=== PATIENT | male | born 1975 | race Two or more races ===

== ENCOUNTER 2020-11-23 04:56 | Inpatient (IN) | payer OTHER ==
[~2020-11-23] VITALS: Ht 167.6 cm; Wt 101.2 kg
[2020-11-23] MEDS ORDERED: ONDANSETRON ODT 4 MG ONE (05:39)
[2020-11-23] MEDS ORDERED: METHOCARBAMOL 750 MG TABLET ONE (05:39)
[2020-11-23] MEDS ORDERED: HYDROcodone/APAP 5/325 TABLET ONE (05:40)
--- NOTE | 2020-11-23 05:43 | NUR ---
Pt brought in by EMS from home for acute onset lower lumbar back pain. Onset 9pm yesterday, however gradually worsening over night. Describes pain as achy, non radiating. No sig PMH other than minor L sided CVA x5 years ago. Pt denies any medications including anticoagulation. EMS gave pt 4mg Morphine and 4mg Zofran en route. Pt vitals stable en route. GCS 15, alert and oriented x4. Pt works in [employer] and states he mightve sustained an injury while working. Denies any burning difficulty urinating.
[2020-11-23] MEDS ORDERED: PLEASE ENTER ALLERGIES MC SCH (06:00)
[2020-11-23] MEDS ORDERED: HYDROcodone/APAP 5/325 TABLET PO ONE (06:00)
[2020-11-23] MEDS ORDERED: METHOCARBAMOL 750 MG TABLET PO ONE (06:00)
[2020-11-23] MEDS ORDERED: ONDANSETRON ODT 4 MG PO ONE (06:00)
[2020-11-23] MEDS ORDERED: KETOROLAC 30 MG/1 ML IVPush ONE (06:30)
[2020-11-23] MEDS ORDERED: MORPHINE SULFATE 4 MG/ML, 1ML ONE ×2 (06:33→08:00)
[2020-11-23] MEDS ORDERED: KETOROLAC 30 MG/1 ML ONE (06:33)
[2020-11-23] MEDS: MORPHINE SULFATE 4 MG/ML, 1ML IVPush PRN ×2 (06:36→08:05)
[2020-11-23] MEDS ORDERED: DIPHENHYDRAMINE 50 MG/ML, 1ML ONE (06:44)
--- NOTE | 2020-11-23 06:55 | NUR ---
Report given to HAL Bunch no further questions at this time.
[2020-11-23] MEDS ORDERED: SODIUM CHLORIDE FLUSH 10ML SYR IVF ONE (07:00)
[2020-11-23] MEDS ORDERED: SODIUM CHLORIDE 0.9% 1,000 ML IV ONE ×2 (07:00→09:30)
[2020-11-23] MEDS ORDERED: DIPHENHYDRAMINE 50 MG/ML, 1ML IVPush ONE (07:00)
[2020-11-23] MEDS ORDERED: SODIUM CHLORIDE 0.9% 1,000ML IVBOLUS ONE (07:00)
--- NOTE | 2020-11-23 07:05 | NUR ---
ASSUMING CARE OF PT. PT ASLEEP IN BED WITH EVEN AND UNLABORED RESPIRATIONS. VSS. WOO.
[2020-11-23 07:14] LABS: MICROSCOPIC INDICATED
[2020-11-23 07:18] LABS: MEAN CORPUSCULAR HEMOGLOBIN 28.9 pg (27.5-34.5); MEAN CORPUSCULAR HGB CONC 33.4 g/dL (33.2-36.2); MEAN PLATELET VOLUME 7.7 fL (7.4-10.4); PLATELET COUNT 240 x10^3/uL (130-400); RED BLOOD COUNT 5.64 x10^6/uL (4.38-5.82); RED CELL DISTRIBUTION WIDTH 14.9 % (9.4-14.8)
[2020-11-23 07:30] LABS: ALANINE AMINOTRANSFERASE 127 U/L (12-78); ALBUMIN 3.5 g/dL (3.4-5.0); ANION GAP 10 mmol/L (5-15); CALCIUM 8.7 mg/dL (8.5-10.1); CHLORIDE 106 mmol/L (98-107); CREATININE 1.64 mg/dL (0.7-1.3)
[2020-11-23 07:48] LABS: <PLATELET ESTIMATE> ADEQUATE; <PLT MORPHOLOGY> NORMAL PLT MORPH; <RBC MORPHOLOGY> NORMAL; BAND#(MANUAL) 0.43 x10^3/uL; BANDS%(MANUAL) 3 % (0-7); LYMPH#(MANUAL) 0.85 x10^3/uL (1-3.4); LYMPHS% (MANUAL) 6 % (22-44); MONOS#(MANUAL) 0.71 x10^3/uL (0.3-2.7); MONOS% (MANUAL) 5 % (2-9); SEG#(MANUAL) 12.21 x10^3/uL (1.8-6.8); SEGS% (MANUAL) 86 % (42-75)
[2020-11-23 07:55] LABS: ALKALINE PHOSPHATASE 77 U/L (45-117); BILIRUBIN,TOTAL 0.8 mg/dL (0.2-1.0); TOTAL PROTEIN 8.3 g/dL (6.4-8.2)
[2020-11-23] MEDS ORDERED: DIAZEPAM 5 MG/ML, 2ML ONE (07:59)
[2020-11-23] MEDS ORDERED: DIAZEPAM 5 MG/ML, 2ML IV ONE (08:00)
--- NOTE | 2020-11-23 08:06 | NUR ---
pt medicated per emar for pain. vss
--- NOTE | 2020-11-23 08:27 | NUR ---
PT ASLEEP WITH EVEN AND UNLABORED RESPIRATIONS. SYEDA. CHILO.
[2020-11-23 08:55] LABS: CREATINE KINASE, TOTAL 38934 U/L (39-308)
[2020-11-23] MEDS ORDERED: SODIUM CHLORIDE FLUSH 10ML SYR IVF PRN (09:30)
--- NOTE | 2020-11-23 10:11 | NUR ---
HOSPITALIST TO BEDSIDE. VSS. NADN. TO BE ADMITTED. MEDICATED PER EMAR.
[2020-11-23] MEDS ORDERED: METOCLOPRAMIDE 5 MG/ML, 2ML IVPush PRN (10:30)
[2020-11-23] MEDS ORDERED: hydrALAzine 20 MG/ML, 1ML IVPush PRN (10:30)
[2020-11-23] MEDS ORDERED: ONDANSETRON 2MG/ML, 2ML IVPush PRN (10:30)
[2020-11-23] MEDS: ENOXAPARIN 40 MG/0.4 ML SQ SCH ×2 (10:30→19:25)
[2020-11-23] MEDS ORDERED: ONDANSETRON ODT 4 MG PO PRN (10:30)
[2020-11-23] MEDS ORDERED: ACETAMINOPHEN 325 MG TABLET PO PRN (10:30)
[2020-11-23] MEDS: SODIUM CHLORIDE 0.9% 1,000 ML IV SCH ×3 (10:30→19:24)
[2020-11-23 10:32] LABS: SALICYLATE LEVEL 2.6 mg/dL (2.8-20.0)
--- NOTE | 2020-11-23 10:52 | NUR ---
PT ASLEEP WITH EVEN AND UNLABORED RESPIRATIONS.
[2020-11-23 10:54] LABS: AMPHETAMINE SCREEN, URINE Negative (Negative); BARBITURATE SCREEN, URINE Negative (Negative); BENZODIAZEPINE SCREEN, URINE Negative (Negative); CANNABINOID SCREEN, URINE Negative (Negative); COCAINE SCREEN, URINE Negative (Negative); METHADONE SCREEN, URINE Negative (Negative); OPIATE SCREEN, URINE Positive (Negative)
[2020-11-23] MEDS ORDERED: METHOCARBAMOL 500 MG TABLET PO PRN (11:00)
--- NOTE | 2020-11-23 11:39 | NUR ---
REPORT CALLED TO [facility].
[2020-11-23 18:26] VITALS: BP 166/81
[2020-11-23] MEDS ORDERED: DIPHENHYDRAMINE 50 MG CAPSULE PO PRN (21:00)
[2020-11-23] MEDS: HYDROcodone/APAP 5/325 TABLET PO PRN (22:29)
[2020-11-23] MEDS: GABAPENTIN 300 MG CAPSULE PO PRN (22:29)
[2020-11-24] MEDS: SODIUM CHLORIDE 0.9% 1,000 ML IV SCH ×2 (00:08→04:50)
[2020-11-24 00:11] VITALS: BP 143/79
[2020-11-24 06:33] LABS: BASOPHILS % (AUTO) 0 % (0-1); EOSINOPHILS % (AUTO) 0 % (1-7); LYMPHOCYTES % (AUTO) 10 % (22-44); MEAN CORPUSCULAR HEMOGLOBIN 28.8 pg (27.5-34.5); MEAN CORPUSCULAR HGB CONC 32.9 g/dL (33.2-36.2); MONOCYTES % (AUTO) 7 % (2-9); NEUTROPHILS % (AUTO) 83 % (42-75); PLATELET COUNT 197 x10^3/uL (130-400); RED BLOOD COUNT 5.26 x10^6/uL (4.38-5.82)
[2020-11-24 06:45] LABS: ALANINE AMINOTRANSFERASE 154 U/L (12-78); ALBUMIN 2.7 g/dL (3.4-5.0); ANION GAP 6 mmol/L (5-15); CALCIUM 7.8 mg/dL (8.5-10.1); CHLORIDE 113 mmol/L (98-107)
[2020-11-24 06:56] VITALS: BP 132/87
[2020-11-24 07:12] LABS: ALKALINE PHOSPHATASE 68 U/L (45-117); BILIRUBIN,TOTAL 0.8 mg/dL (0.2-1.0); CREATININE 1.88 mg/dL (0.7-1.3); TOTAL PROTEIN 6.9 g/dL (6.4-8.2)
[2020-11-24 07:19] LABS: CREATINE KINASE, TOTAL 36276 U/L (39-308)
[2020-11-24] MEDS ORDERED: SODIUM BICARBONATE 8.4% 150 MEQ in SODIUM CHLORIDE 0.45% 1,000 ML IV SCH (09:30)
[2020-11-24] MEDS: SODIUM BICARBONATE 8.4% 150 MEQ in DEXTROSE 5% 1,000 ML IV SCH ×3 (10:55→22:35)
[2020-11-24 13:40] VITALS: BP 166/82
[2020-11-24] MEDS: morphine SULFATE 10 MG/ML, 1ML IVPush PRN ×2 (17:24→22:31)
[2020-11-24 18:48] VITALS: BP 123/74
[2020-11-24] MEDS: HYDROcodone/APAP 5/325 TABLET PO PRN (20:09)
[2020-11-24] MEDS: ENOXAPARIN 40 MG/0.4 ML SQ SCH (21:50)
[2020-11-24] MEDS: NICOTINE 21 MG/24 HR PATCH.TD24 TD SCH (21:51)
[2020-11-25 01:22] VITALS: BP 144/79
[2020-11-25] MEDS: SODIUM BICARBONATE 8.4% 150 MEQ in DEXTROSE 5% 1,000 ML IV SCH ×2 (04:40→11:57)
[2020-11-25 05:23] LABS: ANION GAP 0 mmol/L (5-15); CALCIUM 7.7 mg/dL (8.5-10.1); CHLORIDE 106 mmol/L (98-107)
[2020-11-25 07:05] LABS: CREATINE KINASE, TOTAL 56162 U/L (39-308)
[2020-11-25 08:06] VITALS: BP 147/78
[2020-11-25] MEDS: POTASSIUM CHLORIDE 20 MEQ TAB.ER.PRT PO SCH ×2 (08:51→17:52)
[2020-11-25] MEDS ORDERED: NICOTINE 21 MG/24 HR PATCH.TD24 TD SCH (09:00)
[2020-11-25] MEDS: FUROSEMIDE 40 MG/4 ML IV SCH (12:04)
[2020-11-25 12:33] VITALS: BP 147/78
[2020-11-25] MEDS: LACTATED RINGERS 1,000 ML IV SCH ×3 (13:42→22:27)
[2020-11-25] MEDS: POTASSIUM CHLORIDE 20 MEQ PACKET PO SCH (17:53)
[2020-11-25 20:00] VITALS: BP 154/83
[2020-11-25] MEDS: NICOTINE 21 MG/24 HR PATCH.TD24 TD SCH (20:59)
[2020-11-25] MEDS: ENOXAPARIN 40 MG/0.4 ML SQ SCH (20:59)
[2020-11-26 01:27] VITALS: BP 156/82
[2020-11-26] MEDS: LACTATED RINGERS 1,000 ML IV SCH ×4 (02:42→20:24)
[2020-11-26 07:31] VITALS: BP 150/80
[2020-11-26 07:33] LABS: ANION GAP 9 mmol/L (5-15); CALCIUM 8.6 mg/dL (8.5-10.1); CHLORIDE 102 mmol/L (98-107); CREATININE 2.01 mg/dL (0.7-1.3)
[2020-11-26 07:36] LABS: BASOPHILS % (AUTO) 0 % (0-1); EOSINOPHILS % (AUTO) 0 % (1-7); LYMPHOCYTES % (AUTO) 9 % (22-44); MEAN CORPUSCULAR HEMOGLOBIN 29.1 pg (27.5-34.5); MEAN PLATELET VOLUME 8.6 fL (7.4-10.4); MONOCYTES % (AUTO) 11 % (2-9); NEUTROPHILS % (AUTO) 80 % (42-75); PLATELET COUNT 186 x10^3/uL (130-400); RED BLOOD COUNT 5.34 x10^6/uL (4.38-5.82); RED CELL DISTRIBUTION WIDTH 15.5 % (9.4-14.8)
[2020-11-26] MEDS: POTASSIUM CHLORIDE 20 MEQ TAB.ER.PRT PO SCH ×2 (07:40→16:45)
[2020-11-26] MEDS: POTASSIUM CHLORIDE 20 MEQ PACKET PO SCH ×2 (07:40→16:44)
[2020-11-26] MEDS: GABAPENTIN 300 MG CAPSULE PO PRN (07:41)
[2020-11-26] MEDS: FUROSEMIDE 40 MG/4 ML IV SCH (07:41)
[2020-11-26] MEDS: NICOTINE 21 MG/24 HR PATCH.TD24 TD SCH (07:41)
[2020-11-26] MEDS: HYDROcodone/APAP 5/325 TABLET PO PRN ×2 (07:42→13:44)
[2020-11-26 08:46] LABS: CREATINE KINASE, TOTAL 39169 U/L (39-308)
[2020-11-26 12:49] VITALS: BP 164/76
[2020-11-26] MEDS ORDERED: FUROSEMIDE 40 MG/4 ML IV SCH (17:00)
[2020-11-26] MEDS: HEPARIN 5,000 UNITS/ML, 1ML SQ SCH (20:24)
[2020-11-26 20:43] VITALS: BP 169/95
[2020-11-27 00:21] VITALS: BP 165/84
[2020-11-27] MEDS: LACTATED RINGERS 1,000 ML IV SCH (04:07)
[2020-11-27] MEDS: HEPARIN 5,000 UNITS/ML, 1ML SQ SCH ×3 (04:07→20:37)
[2020-11-27 05:48] LABS: BASOPHILS % (AUTO) 0 % (0-1); EOSINOPHILS % (AUTO) 0 % (1-7); LYMPHOCYTES % (AUTO) 10 % (22-44); MEAN CORPUSCULAR HEMOGLOBIN 29.4 pg (27.5-34.5); MEAN PLATELET VOLUME 8.8 fL (7.4-10.4); MONOCYTES % (AUTO) 13 % (2-9); NEUTROPHILS % (AUTO) 77 % (42-75); PLATELET COUNT 195 x10^3/uL (130-400); RED BLOOD COUNT 5.21 x10^6/uL (4.38-5.82); RED CELL DISTRIBUTION WIDTH 15.2 % (9.4-14.8)
[2020-11-27 06:09] LABS: ALBUMIN 2.3 g/dL (3.4-5.0); ANION GAP 9 mmol/L (5-15); CALCIUM 9.3 mg/dL (8.5-10.1); CHLORIDE 99 mmol/L (98-107)
[2020-11-27 06:39] LABS: ALANINE AMINOTRANSFERASE 216 U/L (12-78); ALKALINE PHOSPHATASE 76 U/L (45-117); CREATININE 1.68 mg/dL (0.7-1.3); TOTAL PROTEIN 7.3 g/dL (6.4-8.2)
[2020-11-27 06:52] LABS: CREATINE KINASE, TOTAL 28777 U/L (39-308)
[2020-11-27] MEDS: HYDROcodone/APAP 5/325 TABLET PO PRN ×2 (08:12→20:37)
[2020-11-27] MEDS: NICOTINE 21 MG/24 HR PATCH.TD24 TD SCH (08:12)
[2020-11-27] MEDS: POTASSIUM CHLORIDE 20 MEQ TAB.ER.PRT PO SCH ×2 (08:12→16:56)
[2020-11-27 08:25] VITALS: BP 154/90
[2020-11-27] MEDS: AMLODIPINE 5 MG TABLET PO SCH (08:30)
[2020-11-27] MEDS ORDERED: LACTATED RINGERS 1,000 ML IV SCH (12:00)
[2020-11-27 14:29] VITALS: BP 139/83
[2020-11-27 19:45] VITALS: BP 173/91
[2020-11-28 00:30] VITALS: BP 144/88
[2020-11-28] MEDS: HEPARIN 5,000 UNITS/ML, 1ML SQ SCH ×3 (04:31→20:27)
[2020-11-28 06:40] LABS: ANION GAP 9 mmol/L (5-15); CHLORIDE 101 mmol/L (98-107)
[2020-11-28 06:43] LABS: ALANINE AMINOTRANSFERASE 208 U/L (12-78); ALKALINE PHOSPHATASE 100 U/L (45-117); BILIRUBIN,TOTAL 0.9 mg/dL (0.2-1.0); CREATININE 1.52 mg/dL (0.7-1.3); TOTAL PROTEIN 7.7 g/dL (6.4-8.2)
[2020-11-28 07:03] LABS: CREATINE KINASE, TOTAL 17138 U/L (39-308)
[2020-11-28 07:15] LABS: ALBUMIN 2.2 g/dL (3.4-5.0)
[2020-11-28 07:59] VITALS: BP 131/83
[2020-11-28] MEDS: NICOTINE 21 MG/24 HR PATCH.TD24 TD SCH (09:30)
[2020-11-28] MEDS: AMLODIPINE 5 MG TABLET PO SCH (09:51)
[2020-11-28 14:06] VITALS: BP 115/79
[2020-11-28 18:30] VITALS: BP 149/83
[2020-11-29 00:01] VITALS: BP 149/87
[2020-11-29] MEDS: HEPARIN 5,000 UNITS/ML, 1ML SQ SCH ×2 (04:27→12:30)
[2020-11-29] MEDS: HYDROcodone/APAP 5/325 TABLET PO PRN (04:30)
[2020-11-29 05:48] LABS: BASOPHILS % (AUTO) 0 % (0-1); EOSINOPHILS % (AUTO) 1 % (1-7); LYMPHOCYTES % (AUTO) 14 % (22-44); MEAN CORPUSCULAR HEMOGLOBIN 28.7 pg (27.5-34.5); MEAN CORPUSCULAR HGB CONC 33.1 g/dL (33.2-36.2); MEAN PLATELET VOLUME 8.4 fL (7.4-10.4); MONOCYTES % (AUTO) 11 % (2-9); NEUTROPHILS % (AUTO) 74 % (42-75); PLATELET COUNT 262 x10^3/uL (130-400); RED CELL DISTRIBUTION WIDTH 15.1 % (9.4-14.8)
[2020-11-29 06:02] LABS: CHLORIDE 101 mmol/L (98-107)
[2020-11-29 06:32] VITALS: BP 124/76
[2020-11-29 06:34] LABS: ALANINE AMINOTRANSFERASE 201 U/L (12-78); ALKALINE PHOSPHATASE 131 U/L (45-117); ANION GAP 10 mmol/L (5-15); BILIRUBIN,TOTAL 0.7 mg/dL (0.2-1.0); CREATINE KINASE, TOTAL 10450 U/L (39-308); CREATININE 1.32 mg/dL (0.7-1.3); TOTAL PROTEIN 7.8 g/dL (6.4-8.2)
[2020-11-29 07:27] LABS: ALBUMIN 1.9 g/dL (3.4-5.0)
[2020-11-29] MEDS: NICOTINE 21 MG/24 HR PATCH.TD24 TD SCH ×2 (09:00→09:46)
[2020-11-29] MEDS: AMLODIPINE 5 MG TABLET PO SCH (09:46)
[2020-11-29] MEDS ORDERED: AMLO-150 PO (11:40)
== END 2020-11-29 13:45 | disposition home or self-care (01) | DRG 564 ==
LOC: ED 10:03 → EDIP 10:28 → SUATTDRO 10:31 → 3N 13:01
PROVIDERS: ADMIT Hospitalist; ATTEND Family Medicine
DX: T79.6XXA Traumatic ischemia of muscle, initial encounter (principal); N17.0 Acute kidney failure with tubular necrosis; E87.1 Hypo-osmolality and hyponatremia; E87.4 Mixed disorder of acid-base balance; E87.6 Hypokalemia; E66.9 Obesity, unspecified; F17.210 Nicotine dependence, cigarettes, uncomplicated; I10 Essential (primary) hypertension; R74.01 Elevation of levels of liver transaminase levels; S39.012A Strain of muscle, fascia and tendon of lower back, initial encounter; Y93.89 Activity, other specified; Z82.49 Family history of ischemic heart disease and other diseases of the circulatory system; Y92.89 Other specified places as the place of occurrence of the external cause; Y99.8 Other external cause status; X50.0XXA Overexertion from strenuous movement or load, initial encounter; Z79.899 Other long term (current) drug therapy; Z68.36 Body mass index [BMI] 36.0-36.9, adult
CPT/HCPCS: 36415; 71045; 72110; 74176; 80048; 80053; 80299; 80307; 80329; 81001; 82550; 85025; 87077; 87086; 93306; 93356; 96374; G0378; J1644; J1650; J1885; J1940; J3360; J7070; Q0162; G0480; J1200; J2270; J7030; J7120